=== PATIENT | male | born 1960 | race Caucasian/White ===

== ENCOUNTER 2019-08-16 10:43 | Inpatient (IN) ==
--- NOTE | 2019-08-16 11:01 | PROVIDER DOCUMENTATION ---
HPI-General Adult - General Stated Complaint: ABSCESS Time Seen by Provider: 08/16/19 11:01 Source: patient Allergies/Adverse Reactions: Patient Allergies Allergy/AdvReac Type Severity Reaction Status Date / Time Penicillins Allergy Unknown Verified 02/17/19 10:35 Home Medications: Home Medication List Medication Instructions Recorded Confirmed Last Taken Type Albuterol Sulfate Inhaler 2 puff INH Q6H PRN PRN #1 inhaler 02/17/19 Unknown Rx [Ventolin Hfa] - History of Present Illness -Gen Adult Nature of Presenting Problems: Pt. is 59 yom that presents with c/o abscess to the left hand. He reports he had a cyst removed and now the hand is swollen, red and infected. He denies any other complaints. Location of Pain/Injury: reports: hand(s) (Left). denies: none, head, face, mouth, neck, chest, upper extremity, abdomen, back, pelvis, genitalia, lower extremity, feet, upper body, lower body, generalized, other Pain Radiation: reports: arm(s) (Left). denies: no radiation, back, buttocks, chest, epigastric, feet, groin, jaw, flank (L), legs (lower), LLQ, LUQ, neck, periumbilical, flank (R), RLQ, RUQ, shoulder(s), scapula, scrotal, sternal notch, suprapubic, legs (upper), urethral, vaginal, other Quality of Pain: reports: aching, pressure, throbbing, tightness. denies: burning, cramping, indigestion, sharp Severity: reports: moderate. denies: mild, severe Onset/Duration: reports: gradual, 3 days ago Timing: reports: still present. denies: improving, intermittent, changing over time Context/Activities at Onset: reports: none. denies: light activity, moderate a ctivity, vigorous activity, recent emotional stress, recent physical stress, recent trauma history, possible bad food, cold exposure, eating, out of country travel, rest, sleep, sexual activity, other Modifying Factors: improves with: nothing. worse with: movement, palpation Associated Symptoms: reports: other (There is a large abscess to the left hand between the thumb and index finger that is approx. 3 inches in diameter with surrounding erythema. There is fluctuance noted. The erythema moves of the left arm most of the way to the elbow.). denies: denies symptoms, anxiety, arm pain, back/neck pain, chest pain, constipation, cough, diaphoresis, diarrhea, dizziness, EENT symptoms, fatigue, fever/chills, genitourinary problems, headaches, heartburn, joint pain, loss of appetite, malaise, muscle aches, sinus congestion/drainage, nausea, rash, seizure, shortness of breath, sensory/motor loss, pain with inspiration, swelling/mass in abdomen, syncope, vomiting, weakness, trouble walking Similar Symptoms Previously?: Yes Recently seen or treated by another doctor?: Yes Review of Systems - Adult - REVIEW OF SYSTEMS - ADULT Constitutional: reports: no symptoms reported Eyes: reports: no symptoms reported Ears, Nose, Mouth & Throat: reports: no symptoms reported Cardiovascular: reports: no symptoms reported Respiratory: reports: no symptoms reported Gastrointestinal: reports: no symptoms reported Genitourinary: reports: no symptoms reported Musculoskeletal: reports: no symptoms reported Integumentary: reports: see HPI, skin sores/ulcer (There is a large abscess to the left hand between the thumb and index finger that is approx. 3 inches in diameter with surrounding erythema. There is fluctuance noted. The erythema moves of the left arm most of the way to the elbow.). denies: hair loss, mole changes, nail changes Neurological: reports: no symptoms reported Psychiatric: reports: no symptoms reported Past History - Adult - PAST MEDICAL HISTORY-ADULT Review of Records: reports: Old Records Reviewed, Nursing Assessment Review, Medications Reviewed, Social history reviewed & non-contributory. - IMMUNIZATION STATUS Childhood Immunizations: See Nurse Assessment Flu Vaccine: See Nurse Assessment - FAMILY HISTORY Family History: reviewed, not pertinent - SOCIAL HISTORY Smoking: cigarettes, greater than 1 pack/day Provider spent 3-5 mins advising pt. on dangers of tobacco.: Discussed manners to quit use, and f/u contacts for add'l counseling. Physical Exam-General - PHYSICAL EXAM-ADULT Initial Vital Signs Reviewed: Yes - CONSTITUTIONAL General Appearance: alert, mild distress, thin. negative: anxious, slow to respond, obtunded, combative - EYES Eyes: PERRL/EOMI - HEAD, EARS, NOSE, MOUTH & THROAT HENMT: normocephalic/atraumatic, moist mucous membranes - NECK Neck: non-tender, full range of motion, supple, normal inspection - RESPIRATORY Respiratory: lungs clear, normal breath sounds - CARDIOVASCULAR Cardiovascular: normal peripheral pulses, regular rate, rhythm, no edema - GASTROINTESTINAL (ABDOMEN) Abdominal Exam: normal bowel sounds, non tender, soft - LYMPHATIC Lymphatic: no adenopathy - MUSCULOSKELETAL Back Exam: normal inspection, no CVA tenderness, no vertebral tenderness Extremity: erythema (There is a large abscess to the left hand between the thumb and index finger that is approx. 3 inches in diameter with surrounding erythema. There is fluctuance noted. The erythema moves of the left arm most of the way to the elbow.), inflammation (There is a large abscess to the left hand between the thumb and index finger that is approx. 3 inches in diameter with surrounding erythema. There is fluctuance noted. The erythema moves of the left arm most of the way to the elbow.), swelling (There is a large abscess to the left hand between the thumb and index finger that is approx. 3 inches in diameter with surrounding erythema. There is fluctuance noted. The erythema moves of the left arm most of the way to the elbow.), tenderness (There is a large abscess to the left hand between the thumb and index finger that is approx. 3 inches in diameter with surrounding erythema. There is fluctuance noted. The erythema moves of the left arm most of the way to the elbow.). negative: deformity Peripheral Pulses: radial (R): 2+, radial (L): 2+ - SKIN Integumentary: erythema (There is a large abscess to the left hand between the thumb and index finger that is approx. 3 inches in diameter with surrounding erythema. There is fluctuance noted. The erythema moves of the left arm most of the way to the elbow.), tenderness (There is a large abscess to the left hand between the thumb and index finger that is approx. 3 inches in diameter with surrounding erythema. There is fluctuance noted. The erythema moves of the left arm most of the way to the elbow.), warm (There is a large abscess to the l eft hand between the thumb and index finger that is approx. 3 inches in diameter with surrounding erythema. There is fluctuance noted. The erythema moves of the left arm most of the way to the elbow.). negative: cyanosis, jaundice, pallor - NEUROLOGIC Neurologic: grossly normal, no motor/sensory deficits - PSYCHIATRIC Psych/Mental Status: normal mood/affect, normal thought content, normal thought process, oriented x 3. negative: anxious, paranoid, tearful Progress - PLAN OF CARE/RESULTS Result Diagrams: 08/16/19 11:18 08/16/19 11:18 - CONSULTS/PCP/HOSPITALIST Notification #1 *Consult/PCP/Hospitalist*: Mendy Lentz Time Discussed: 15:06 Reason/Comments: Admission Consult Disposition: Will see in ED, Admit Procedures - INCISION & DRAINAGE Site: Left hand Abscess Type: Subcutaneous Prepped with: Betadine Anesthetic: 1%, Lidocaine/Xylocaine Volume of Anesthetic (ml's): 2 Blade Size: 11 Packing placed?: Yes Sterile Dressing Applied?: Yes Drainage: Large Amount Departure - Departure Date of Disposition Decision: 08/16/19 Time of Disposition Decision: 13:59 DIAGNOSIS: Cellulitis and abscess of hand Disposition: ADMITTED INPATIENT 09 Certified Medical Emergency: Emergent Condition: Stable Referrals and Follow-Ups: Shea Hernandez CRNP [Primary Care Provider] - - Critical Care Note This patient required my direct & personal management of CC.: No Attestation - Physician/ JOSE LUIS Attestation Patient care was provided by Advanced Practice Provider:: Yes Advanced Practice Provider:: Se Underwood Advanced Practice Provider documentation review:: The Mid-level provider documentation, treatment plan and medical decision making was reviewed by the physician who agrees with all treatment and medical decision making by the MLP. The physician spent face to face time with patient:: No Advanced Practice Provider documentation review:: Supervising physician onsite and consulted in the evaluation and care of this patient. The physician did not have a face to face encounter with the patient.
[2019-08-16] MEDS ORDERED: XYLOCAINE-MPF 1% INJ ONE (11:08)
[2019-08-16] MEDS ORDERED: VANCOMYCIN 1 GM/NS 1 GM/250 ML IVPB IV ONE (11:08)
[2019-08-16 11:30] LABS: BASO# 0.03 X1000 (0.0-0.2); BASO% 0.2 % (0.0-0.8); EOS# 0.11 X1000 (0.0-0.7); EOS% 0.7 % (0.0-10.0); HEMATOCRIT 38.2 % (42.0-52.0); HEMOGLOBIN 11.7 g/dL (14.0-18.0); IMM GRAN# 0.06 X1000 (0.0-0.04); IMM GRAN% 0.4 % (0.0-0.5); LYMPH# 1.05 X1000 (1.2-3.4); LYMPH% 6.5 % (20.5-51.1); MCH 28.7 PG (27-31); MCHC 30.6 g/dL (33-37); MCV 93.6 FL (81-99); MPV 9.9 FL (7.4-10.4); NEUT# 13.64 X1000 (1.4-6.5); NEUT% 84.2 % (42.2-75.2); PLT 218 X1000 (130-400); RBC 4.08 XMIL (4.7-6.1); RDW 14.7 % (11.5-14.5); WBC 16.19 X1000 (4.8-10.8)
[2019-08-16 12:03] LABS: AGAP 14; ALB/GLOB RATIO 1.2; ALBUMIN 3.7 g/dL (3.5-5.0); ALKALINE PHOSPHATASE 88 U/L (32-122); BUN 12 mg/dL (8-22); CALCIUM 9.2 mg/dL (8.8-10.2); CHLORIDE 97 mmol/L (98-107); COSMO 278; CREATININE 1.3 mg/dL (0.7-1.2); GLUCOSE 113 mg/dL (70-104); GOT 21 U/L (10-34); GPT 23 U/L (10-44); POTASSIUM 4.7 mmol/L (3.5-5.1); SODIUM 139 mmol/L (136-145); TCO2 28 mmol/L (25-35); TOTAL BILIRUBIN 0.51 mg/dL (0.20-1.00); TOTAL PROTEIN 6.8 g/dL (6.3-8.3)
[2019-08-16] MEDS ORDERED: ZOFRAN IV PRN (16:28)
[2019-08-16] MEDS ORDERED: TYLENOL PO PRN (16:28)
--- NOTE | 2019-08-16 16:47 | HISTORY AND PHYSICAL ---
PRIMARY CARE PROVIDER: Shea Hernandez. CHIEF COMPLAINT: Of left hand abscess with erythema and edema that has progressively worsened over the last couple of days. HISTORY OF PRESENTING ILLNESS: This is a 59-year-old male who presents to [facility] with complaints of a abscess to the left hand in between his thumb and index finger. States that he had an area there that appeared to be like a cyst and saw his primary care physician but that it had been there for a long time so they did not mess with that. He when he got home began picking at it and it became swollen, red, edematous so he came to the emergency room for evaluation, was noted to have a large abscess to that area that was approximately 3 inches in diameter with fluctuance noted and there was some erythema streaking up almost to the elbow. He had an I and D of this area today with packing. They removed a large amount of purulent drainage per the nurse practitioner report in the ER. He was given vancomycin 1 g IV and now noted to have a white blood cell count of 16.19 and a mild bump in his creatinine at 1.3 so he will be admitted for further evaluation and treatment. PAST MEDICAL HISTORY: A bleeding ulcer. PAST SURGICAL HISTORY: None. FAMILY HISTORY: Reviewed and noncontributory. SOCIAL HISTORY: Currently lives with family. Smokes 12 cigarettes a day and has done so for the past 45 years. Denied any alcohol use and smokes marijuana daily but states he has a medical card for marijuana use from [place]. ALLERGIES: Penicillin. HOME MEDICATIONS: A current list will need to be obtained, obtained, reconciled, reviewed and restarted as appropriate. Will place an order for nursing to update and confirm home medications. LABORATORY DATA: Showed a white blood cell count of 16.19, hemoglobin 11.7, hematocrit 38.2, platelets 218,000. Sodium 139, potassium 4.7, chloride 97, CO2 28, BUN of 12, creatinine 1.3, glucose 113, plasma lactate of 0.6. REVIEW OF SYSTEMS: He denied any fever, chills, blurred vision, dizziness, chest pain, coughing, shortness of breath. He did have pain to the area of his left hand between his thumb and his index finger where the abscess was. Denied any abdominal pain, constipation, diarrhea, burning or hurting with urination. PHYSICAL EXAMINATION: On arrival he had a temperature of 98.1 degrees, pulse 78, respirations 18, blood pressure 110/73, saturating 97% on room air. GENERAL: This is a 59-year-old male who is lying in the bed and answers questions appropriately. HEENT: Normocephalic, atraumatic. Normal ENT inspection. Oropharynx and nares are clear. Pupils are equal, round, reactive to light, accommodation. Extraocular movements are intact. NECK: Normal inspection, normal range of motion. LUNGS: Clear to auscultation bilaterally with equal lung expansion and chest wall movement. HEART: Regular rate and rhythm. No murmurs, rubs, or gallops. ABDOMEN: Soft, nontender, nondistended. Bowel sounds are present x4 quadrants. MUSCULOSKELETAL: He has 5/5 strength x4 extremities. To his left hand between his thumb and index finger he had an approximate 3 inch diameter abscess with surrounding erythema. Fluctuance was noted and the erythema runs up almost to his elbow. Had an I and D with a large amount of purulent exudate removed, was packed with gauze. NEUROLOGICAL: The cranial nerves 2-12 appear grossly intact. ASSESSMENT: 1. Left hand abscess with cellulitis. 2. Leukocytosis. 3. Acute kidney injury. 4. Tobacco abuse. 5. Marijuana abuse. PLAN: He will be admitted to the medical unit, placed on a regular diet, placed on clindamycin 600 mg IV q.8, Hudson 10 1 p.o. q.4 hours p.r.n. for pain. We will need to update and confirm home medications. Recheck a CBC, BMP in the a.m. Further orders after seen by attending. Dictated by LUKE Liu for Cosme Tran MD Addendum: Patient seen and examined by myself. Agree with LUKE note. It reflects my assessment and plan. Patient is admitted to hospital for hand cellulitis. Will start broad spectrum antibiotics and will consult Orthopedics. cc: LUKE Hernandez MD [facility]
[2019-08-16] MEDS: NICODERM PATCH TD SCH (16:53)
[2019-08-16] MEDS: CLINDAMYCIN 600 MG/D5W 600 MG/50 ML IVPB IV SCH (17:00)
[2019-08-16] MEDS ORDERED: VANCOMYCIN IV PER PHARMACY MISC SCH (17:15)
[2019-08-16] MEDS ORDERED: VANCOMYCIN 1,200 MG in NS 250 ML IV ONE (18:15)
[2019-08-17] MEDS: CLINDAMYCIN 600 MG/D5W 600 MG/50 ML IVPB IV SCH ×3 (01:19→16:29)
[2019-08-17 08:11] LABS: BASO# 0.03 X1000 (0.0-0.2); BASO% 0.3 % (0.0-0.8); EOS% 2.7 % (0.0-10.0); HEMATOCRIT 37.7 % (42.0-52.0); HEMOGLOBIN 11.6 g/dL (14.0-18.0); IMM GRAN# 0.06 X1000 (0.0-0.04); IMM GRAN% 0.5 % (0.0-0.5); LYMPH# 1.18 X1000 (1.2-3.4); LYMPH% 10.6 % (20.5-51.1); MCH 29.1 PG (27-31); MCHC 30.8 g/dL (33-37); MCV 94.7 FL (81-99); MONO# 0.96 X1000 (0.11-0.59); MONO% 8.6 % (1.7-9.3); MPV 9.9 FL (7.4-10.4); NEUT# 8.61 X1000 (1.4-6.5); NEUT% 77.3 % (42.2-75.2); PLT 229 X1000 (130-400); RBC 3.98 XMIL (4.7-6.1); RDW 14.9 % (11.5-14.5); WBC 11.14 X1000 (4.8-10.8)
[2019-08-17 08:24] LABS: AGAP 10; BUN 11 mg/dL (8-22); CALCIUM 9.2 mg/dL (8.8-10.2); CHLORIDE 97 mmol/L (98-107); COSMO 276; CREATININE 1.1 mg/dL (0.7-1.2); ESTIMATED GFR > 60; GLUCOSE 115 mg/dL (70-104); POTASSIUM 4.6 mmol/L (3.5-5.1); SODIUM 138 mmol/L (136-145); TCO2 31 mmol/L (25-35)
[2019-08-17] MEDS: NICODERM PATCH TD SCH (09:54)
[2019-08-17] MEDS: NORCO-10 PO PRN ×2 (16:28→20:59)
[2019-08-17] MEDS ORDERED: XANAX PO ONE (16:54)
[2019-08-17] MEDS ORDERED: VENTOLIN HFA INH PRN (17:05)
--- NOTE | 2019-08-17 17:53 | PROGRESS NOTE ---
DATE: 08/17/2019 SUBJECTIVE: The patient feels okay. No major complaints. He feels better. OBJECTIVE: 141/78, heart rate of 79, respiratory rate of 20, temperature 99.5 degrees, 94% on room air.Cardiovascular: Regular rate and rhythm. Pulmonary: Bilateral breath sounds clear to auscultation. GI: Soft, nontender, nondistended. Bowel sounds are positive. LABORATORY DATA: White count was 11, hemoglobin and hematocrit 11, 37, platelets of 229,000. Basic was normal. PROBLEM LIST: 1. Hand cellulitis of the left hand status post incision and drainage. Micro shows gram- negative eden and I am going to get an orthopedic consult because it is a hand cellulitis. We will continue antibiotics. He is on vanc and clinda. Would like to use Unasyn but he is allergic to penicillin so we will continue to follow. 2. Diabetes. He is on metformin. We will follow his blood sugars closely and check an A1c. 3. Hypertension. Will resume his regular medications. 4. Anxiety disorder. We will continue his Xanax. He specifically requested that. DISPOSITION: Pending resolution of his clinical status and follow up on final culture results. cc: Chico Lentz MD
[2019-08-17] MEDS: ZOLOFT PO SCH (17:54)
[2019-08-17] MEDS: TENORMIN PO SCH (17:54)
[2019-08-17] MEDS: ROCEPHIN 1 GM in NS 50 ML IV SCH (18:16)
[2019-08-17] MEDS ORDERED: VANCOMYCIN 1,800 MG in NS 250 ML IV SCH (18:30)
[2019-08-18] MEDS: XANAX PO PRN ×3 (01:07→19:00)
[2019-08-18] MEDS: NORCO-10 PO PRN ×4 (06:16→18:58)
[2019-08-18] MEDS: PRILOSEC PO SCH (06:16)
[2019-08-18] MEDS: GLUCOPHAGE PO SCH (08:21)
[2019-08-18] MEDS: TENORMIN PO SCH (08:21)
[2019-08-18] MEDS: CATAPRES PO SCH (08:21)
[2019-08-18] MEDS: FISH OIL CONCENTRATE PO SCH (08:21)
[2019-08-18] MEDS: ZOLOFT PO SCH (08:21)
[2019-08-18] MEDS: PRINIVIL PO SCH (08:21)
[2019-08-18] MEDS: NORVASC PO SCH (08:21)
[2019-08-18] MEDS: NICODERM PATCH TD SCH (08:22)
[2019-08-18 08:52] LABS: BASO# 0.03 X1000 (0.0-0.2); BASO% 0.4 % (0.0-0.8); EOS% 3.8 % (0.0-10.0); HEMATOCRIT 37.3 % (42.0-52.0); HEMOGLOBIN 11.2 g/dL (14.0-18.0); IMM GRAN# 0.05 X1000 (0.0-0.04); IMM GRAN% 0.6 % (0.0-0.5); LYMPH# 1.16 X1000 (1.2-3.4); LYMPH% 14.5 % (20.5-51.1); MCH 28.4 PG (27-31); MCV 94.7 FL (81-99); MONO# 0.96 X1000 (0.11-0.59); MPV 9.7 FL (7.4-10.4); NEUT# 5.48 X1000 (1.4-6.5); NEUT% 68.7 % (42.2-75.2); PLT 235 X1000 (130-400); RBC 3.94 XMIL (4.7-6.1); RDW 14.7 % (11.5-14.5); WBC 7.98 X1000 (4.8-10.8)
[2019-08-18 09:19] LABS: AGAP 14; BUN 11 mg/dL (8-22); CALCIUM 8.8 mg/dL (8.8-10.2); CHLORIDE 98 mmol/L (98-107); COSMO 281; CREATININE 1.1 mg/dL (0.7-1.2); ESTIMATED GFR > 60; GLUCOSE 143 mg/dL (70-104); POTASSIUM 4.2 mmol/L (3.5-5.1); SODIUM 140 mmol/L (136-145); TCO2 28 mmol/L (25-35)
--- NOTE | 2019-08-18 17:06 | PROGRESS NOTE ---
DATE: 08/18/2019 SUBJECTIVE: The patient seems improved. OBJECTIVE: Vital Signs: Blood pressure 117/75, heart rate 60, respiratory rate of 20, temperature 97.3 degrees, and afebrile. Cardiovascular: Regular rate and rhythm. Pulmonary: Bilateral breath sounds clear to auscultation. Gastrointestinal: Abdomen soft, nontender, nondistended. Bowel sounds are positive. LABORATORY DATA: White count is down to 7, was at 16. Hemoglobin and hematocrit 11 and 37, platelets 235,000. Basic was normal. The Gram stain culture has grown out Proteus mirabilis which is pansensitive. He is currently on Rocephin and vancomycin which I guess we can probably stop the vancomycin as it is not really doing anything, at least based on the culture results. An odd thing to grow out but in any case is sensitive to everything, Levaquin, cefazolin, Bactrim. We have multiple oral options once we are at that point. PROBLEM LIST: 1. Cellulitis status post incision and drainage. Orthopedics is following. Appreciate Dr. Blanco's input. He is on Rocephin. That should be sufficient for the time being. He is allergic to penicillin. Evaluate for further washout tomorrow. 2. Diabetes. Blood sugars are overall well controlled. We will check A1c tomorrow. DISPOSITION: Pending clinical status but he will most likely, hopefully be able to go home in the next 1 to 2 days. cc: Chico Lentz MD
[2019-08-18] MEDS: MEVACOR PO SCH (18:26)
[2019-08-18] MEDS: ROCEPHIN 1 GM in NS 50 ML IV SCH (18:26)
--- NOTE | 2019-08-19 05:42 | ORTHOPAEDICS CONSULTATION ---
DATE: 08/18/2019 REASON FOR CONSULTATION: Left hand abscess. HISTORY OF PRESENT ILLNESS: Mr. Osorio is a 59-year-old male who presented to [facility] with complaints of an abscess to his left hand. He states that he has had a cyst-like area to that left hand for approximately 10 years. He denies any issues with this until recently when he began picking at the area, and it became red, swollen, and he had streaking up his arm. He states that when he initially presented he also had a fever as well. This area has started to drain and he had an I and D in the ER where a large amount of purulent drainage was removed from the area. He has been started on vancomycin and Rocephin at this time. He has been admitted to the hospitalist. His abscess culture of his left hand has grown Proteus mirabilis which is susceptible to both cephalosporin and gentamicin. It appears that he is on antibiotics to cover this at this time. PAST MEDICAL HISTORY: Hypertension, bleeding ulcer, COPD, anxiety, and depression. PAST SURGICAL HISTORY: He denies any. SOCIAL HISTORY: He is a current everyday smoker and states he has recently quit drinking. He does smoke marijuana and states he has a medical card for marijuana use from [place]. He resides in [place], but states that he has been up here for approximately 6 months due to his mother and father's failing health. He plans on moving to the area. ALLERGIES: Penicillin. HOME MEDICATIONS: As per the chart. LABORATORY DATA: The most recent laboratory data reveals a white count of 7.98, it is decreased from his initial of 16.19. His hemoglobin and hematocrit is 11 and 37. His left shift is improving. His creatinine is now 1.1, and glucose is noted to be elevated at 143. REVIEW OF SYSTEMS: He states he did have fever when he initially presented, though denies any now. He did have some redness to the area as well as some streaking though this has resolved. He denies any abdominal pain, chills, blurry vision, chest pain, diarrhea, or constipation. PHYSICAL EXAMINATION: His most recent vital signs are temperature of 97.3 degrees, blood pressure of 117/75, and he is saturating 95% on room air. His left hand has been wrapped in Kerlix though drainage is noted to the area. He does not have any red streaking from this open area. He does have a fluctuant mass between his thumb and index finger that is approximately 3 cm in diameter with redness surrounding the area. There is an open area to the center of his wound. He does have sensation distally to the area. ASSESSMENT: Left hand abscess and cellulitis. PLAN: Dr. Blanco will be taking patient to the OR tomorrow for incision and drainage of the area. We will continue on his current antibiotics. Consent will be obtained for incision and drainage of left hand. He will be NPO after midnight tonight. Dr. Blanco will be discussing risks and benefits of surgery with the patient including, but not limited to risk of anesthesia, bleeding, blood clot, nerve injury, infection, and . Thank you for this consult. Dictated by LUKE Hodge for Willian Blanco MD cc: Willian Blanco MD
[2019-08-19] MEDS: PRILOSEC PO SCH (06:44)
[2019-08-19] MEDS: GLUCOPHAGE PO SCH ×2 (11:43→15:24)
[2019-08-19] MEDS: FISH OIL CONCENTRATE PO SCH ×2 (11:51→15:24)
[2019-08-19] MEDS: NORVASC PO SCH ×2 (11:51→15:25)
[2019-08-19] MEDS: CATAPRES PO SCH ×2 (11:51→15:24)
[2019-08-19] MEDS: TENORMIN PO SCH ×2 (11:52→15:24)
[2019-08-19] MEDS: ZOLOFT PO SCH ×2 (11:52→15:24)
[2019-08-19] MEDS: NICODERM PATCH TD SCH ×2 (11:52→15:24)
[2019-08-19] MEDS: PRINIVIL PO SCH ×2 (11:52→15:24)
[2019-08-19] MEDS ORDERED: FENTANYL ONE (12:25)
[2019-08-19] MEDS ORDERED: DIPRIVAN 1% ONE (12:25)
[2019-08-19] MEDS ORDERED: XYLOCAINE-MPF 2% ONE (12:29)
[2019-08-19] MEDS ORDERED: NEOSPORIN G.U. IRRIGANT ONE (12:40)
[2019-08-19] MEDS ORDERED: KEFZOL 1 GM/D5W 1 GM/50 ML IVPB ONE (12:56)
[2019-08-19] MEDS ORDERED: ZOFRAN ONE (12:57)
[2019-08-19] MEDS: DILAUDID ONE ×4 (13:41→13:53)
[2019-08-19] MEDS: NORCO-10 ONE ×2 (14:07→15:09)
[2019-08-19] MEDS ORDERED: NORCO-7.5 PO PRN (14:45)
[2019-08-19] MEDS ORDERED: NORCO-5 PO PRN (14:45)
[2019-08-19] MEDS: NS 1,000 ML IV SCH (15:08)
[2019-08-19] MEDS: XANAX PO PRN ×2 (15:08→20:41)
--- NOTE | 2019-08-19 16:10 | OPERATIVE NOTE ---
PROCEDURE DATE: 08/19/2019 PREOPERATIVE DIAGNOSIS: Abscess left hand thenar web space. POSTOPERATIVE DIAGNOSIS: Abscess left hand thenar web space. PROCEDURE: Incision and drainage with debridement left thumb web space abscess. SURGEON: Se Blanco MD HUMAN RESOURCES OPERATIONS COORDINATOR: LUKE Talamantes ANESTHESIA: General. COMPLICATION: None. PROCEDURE IN DETAIL: This 59-year-old male presents for debridement and irrigation of the left thumb web space abscess. Risks, benefits, and no guarantees were discussed and he is willing to proceed. He was taken to the operating room and satisfactory anesthesia obtained. The left hand was prepped and draped in the usual sterile fashion. A time-out was taken to confirm operative site, procedure, and patient. The hand was elevated for 5 minutes and tourniquet inflated to 250 mmHg. An abscess over the web space of the left thumb was visualized with an open wound. This was extended over the thenar space roughly 1 cm. Hemostat dissection was used to open the web space and it was debrided using a rongeur with care taken to preserve neurovascular structures as well as tendinous structures and muscle. Any necrotic tissue or fibrinous tissue was debrided down to healthy tissue. The wound was then irrigated with irrigant. It was then packed with Betadine-soaked 1 quarter-inch iodoform loosely. He was left open and sterilely dressed with gauze and Kerlix. The tourniquet was released with good return of capillary blood flow. The patient was recovered from anesthesia and transferred to the recovery room in stable condition. No intraoperative complications were noted. Instrument count and sponge count was correct at the time of closure. cc: Willian Blanco MD
[2019-08-19] MEDS: MEVACOR PO SCH (17:08)
[2019-08-19] MEDS: ROCEPHIN 1 GM in NS 50 ML IV SCH (17:09)
--- NOTE | 2019-08-19 17:46 | PROGRESS NOTE ---
DATE: 08/19/2019 SUBJECTIVE: Patient has no major complaints. OBJECTIVE: Blood pressure 156/93, heart rate 70, respiratory rate 21, temperature 98.8 degrees, and 95% on 2 L.Cardiovascular: Regular rate and rhythm. Pulmonary: Bilateral breath sounds. Clear to auscultation. GI: Soft, nontender, and nondistended. Bowel sounds are positive. LABORATORY: White count has come down. We have not checked further labs because they had improved. PROBLEM LIST: 1. Cellulitis of the hands, which I believe is of the left hand thenar web space. Dr. Blanco took him to the OR. He had an abscess of the web space of the left thumb about 1 cm. It was dissected and debrided. Necrotic or fibrinous tissue was removed. It was packed with iodoform loosely. He was placed back on the floor. We will continue empiric antibiotics. His culture has grown out just Proteus mirabilis which is an odd bug I think to cause skin infection so he is on Rocephin with a goal for discharge of an oral antibiotic such as Keflex and Levaquin. I would favor against Bactrim. 2. Diabetes. Appears to be stable on current medications. 3. Hypertension. Stable on current medications. 4. Disposition or discharge will be per Ortho. Hopefully, home in the next 1 to 2 days. cc: Chico Lentz MD
[2019-08-19] MEDS: NORCO-10 PO PRN ×2 (20:17→23:57)
[2019-08-20] MEDS: XANAX PO PRN ×2 (00:03→10:11)
[2019-08-20] MEDS: NORCO-10 PO PRN ×3 (05:32→14:20)
[2019-08-20] MEDS: PRILOSEC PO SCH (06:18)
[2019-08-20] MEDS: TENORMIN PO SCH (09:59)
[2019-08-20] MEDS: GLUCOPHAGE PO SCH (09:59)
[2019-08-20] MEDS: PRINIVIL PO SCH (09:59)
[2019-08-20] MEDS: ZOLOFT PO SCH (09:59)
[2019-08-20] MEDS: FISH OIL CONCENTRATE PO SCH (09:59)
[2019-08-20] MEDS: NORVASC PO SCH (09:59)
[2019-08-20] MEDS: CATAPRES PO SCH (09:59)
[2019-08-20] MEDS: NICODERM PATCH TD SCH (10:00)
--- NOTE | 2019-08-20 10:14 | ORTHOPAEDICS PROGRESS NOTE ---
DATE: 08/20/2019 SUBJECTIVE DATA: Mr. Osorio is seen on postop day 1 of his I and D of his left hand abscess. He reports the pain is improved in the hand at this time. He reports the packing fell out of his hand. He has removed his dressings, he states, because he got them wet. OBJECTIVE DATA: There is good range of motion about the right hand and wrist. The patient can move all joints and fingers. All of his tendons are working. There is good capillary refill. There is a bandage applied to the surgical site, with serosanguineous drainage coming from the wound. Upon examination of the wound, there is no packing present. There is 3/5 lab assistant strength. There is a good radial pulse. ASSESSMENT: Left hand abscess between the thumb and index finger with cellulitis. PLAN: Plan to get this irrigated with peroxide 3 times daily. He will need bandage changes several times throughout the day. Will keep him today to get some more IV antibiotics. He will likely be discharged tomorrow. Will check back on him then and see how he is doing. Dictated by LUKE Talamantes for Willian Blanco MD cc: LUKE Talamantes MD
[2019-08-20] MEDS: NS 1,000 ML IV SCH ×2 (13:20→15:30)
[2019-08-20 15:42] VITALS: BP 113/80
[2019-08-20] MEDS: MEVACOR PO SCH (16:49)
[2019-08-20] MEDS: ROCEPHIN 1 GM in NS 50 ML IV SCH (16:50)
== END 2019-08-20 18:33 | disposition home or self-care (01) | DRG 580 ==
LOC: EDIPHOLD 10:43 → ED 10:43 → OBSVTOIN 15:25 → 3N 18:08
PROVIDERS: ATTEND Internal Medicine